=== PATIENT | male | born 1995 | race Caucasian/White ===

== ENCOUNTER 2016-08-16 21:06 | Emergency (ER) | payer SELFPAY ==
--- NOTE | ~2016-08-16 | ER ---
PATIENT'S NAME: DIANELYS CAN [facility] AGE: 21 Y [address] ROOM: [place] [address] LOCATION: [facility] ADMIT DATE: 08/16/2016 ER/Outpatient Report DISCHARGE DATE: 08/16/2016 FAMILY PHYSICIAN: PHYSICIAN, ORLIN ATTENDING PHYSICIAN: Gillian Weeks Time of Arrival: 2106 hours. Time of Evaluation: 2150 hours. IDENTIFICATION: A 21-year-old male. CHIEF COMPLAINT: Eye irritation. HISTORY OF PRESENT ILLNESS: The patient is a 21-year-old male who was using some instillation and got some particles in his eyes earlier today. He did have safety goggles on, but he still got some particles in his eyes. He has had irritation and the sensation that there is something in his eye. He has tried flushing it several times at home with no relief. PAST MEDICAL HISTORY: ALLERGIES: NO KNOWN DRUG ALLERGIES. CURRENT MEDICATIONS: No current medications. MEDICAL PROBLEMS: Denies. SURGERIES: No prior surgeries or hospitalizations. SOCIAL HISTORY: The patient lives here in [place]. Works for [employer] (?). Tobacco use, denies. Alcohol use, denies. Drug use, denies. REVIEW OF SYSTEMS: All systems reviewed and negative other than what is noted in the HPI. Tetanus, he believes is current within 1 year ago. PHYSICAL EXAMINATION: PATIENT'S NAME: DIANELYS CAN [facility] AGE: 21 Y [address] ROOM: [place] [address] LOCATION: [facility] ADMIT DATE: 08/16/2016 ER/Outpatient Report DISCHARGE DATE: 08/16/2016 FAMILY PHYSICIAN: PHYSICIAN, ORLIN ATTENDING PHYSICIAN: Gillian Weeks VITAL SIGNS: Height 5 feet 3 inches and weight 61.7 kg. Blood pressure 147/86, pulse 90, respirations 18, temperature 97.6, and saturations 97%. Visual acuity 20/25 on the right, 20/100 on the left, 20/30 on both eyes. GENERAL: A pleasant male in no acute distress. HEENT: Head: Normocephalic, atraumatic. Eyes: Pupils equal and reactive to light and accommodation. Extraocular movements intact. Nose: Mucosa pink. No lesions. Mouth: No lesions. Pharynx, benign. Mild conjunctival injection on the left. No evidence of foreign body. Lid was everted. No evidence of foreign body. Fluorescein stain shows uptake with the corneal abrasion on the left eye in the upper inner (nasal) quadrant. IMPRESSION: Corneal abrasion. PLAN: Tobrex ophthalmic drops 2 drops applied here and then 2 drops 3 times daily for 3 days. Patch for comfort as needed. Tylenol or Advil for pain and follow up with eye doctor or [facility] in 1 day for recheck. Follow up sooner if any problems or concerns. The patient understands and agrees, and all questions have been answered. MD RILEY CHERRY/modl /[id number] d: 08/17/16613 t: 08/27/1630, OUTPATIENT REPORT
== END 2016-08-16 22:09 | disposition disaster alternative care site (69) ==
LOC: GACC 21:06
DX: S05.02XA Injury of conjunctiva and corneal abrasion without foreign body, left eye, initial encounter (principal); X58.XXXA Exposure to other specified factors, initial encounter